=== PATIENT | female | born 1945 | race Caucasian/White ===

== ENCOUNTER → 2019-12-11 13:59 | Outpatient (CLI) | payer MEDICARE, SELFPAY ==
[2019-12-12 17:46] LABS: COVID19 Sendout Not Detected (Not Detect)
== END ==
PROVIDERS: PCP Specialist; Visit Provider Physician Assistant
DX: Z01.812 Encounter for preprocedural laboratory examination (principal)
CPT/HCPCS: 87635

== ENCOUNTER 2019-12-15 14:10 | Observation (INO) | payer MEDICARE, SELFPAY ==
[2019-12-07 09:00] VITALS: BMI 20.3
[2019-12-14] VITALS (19 sets, daily range): BP systolic 105–168; BP diastolic 60–94; PULSE 64–89; RESP 9–20; TEMP 35.8–36.7; O2SAT 2–100; BMI 20.3
--- NOTE | 2019-12-14 06:00 | DI.RAD.S_ITS ---
PROCEDURE: XR HIP W PEL IF DONE LT 2V INDICATIONS: left total hip TECHNIQUE: 2 views of the hip were acquired. COMPARISON: [facility] [place], [place]R PELVIS WITH BILATERAL LATERAL HIPS, 10/19/2019, 13:22. FINDINGS: Intraoperative images demonstrate left hip arthroplasty. There is good anatomic alignment and hardware appears intact. IMPRESSION: Intraoperative left hip arthroplasty. Dictated by: Stefany Martinez M.D. on 12/14/2019 at 16:49 Approved by: Stefany Martinez M.D. on 12/14/2019 at 16:50
[2019-12-14] MEDS: LACTATED RINGERS 1,000 ML 42 ML IV ×2 (09:05→12:03)
[2019-12-14] MEDS: PREGABALIN 75 MG CAPSULE PO (09:08)
[2019-12-14] MEDS: ACETAMINOPHEN 325 MG TABLET 975 MG PO (09:08)
[2019-12-14] MEDS: MELOXICAM 7.5 MG TABLET 15 MG PO (09:08)
[2019-12-14] MEDS: VANCOMYCIN 1,000 MG/200 ML PIGGYBACK 200 MG IV ×2 (09:29→17:40)
--- NOTE | 2019-12-14 09:58 | PM.PREOP ---
Pre-operative Note Interval Note History & Physical reviewed/Exam performed by Physician: Yes Changes to H&P: No
--- NOTE | 2019-12-14 09:58 | PM.OP.1 ---
Operative Date/Time/Diagnoses Date of procedure: 12/14/19 Time of procedure: 10:31 Pre-op diagnosis: Severe left hip OA Post-op diagnosis: same Procedure & Clinicians Procedure: Left total hip arthroplasty anterior approach Same procedure as scheduled: Yes Indications: The patient has had progressively worsening left hip pain with radiographic changes consistent with arthritis. Non-operative management has failed and the patient has requested total hip replacement. The risks, benefits and alternatives to surgery were discussed with the patient prior to proceeding. Risks discussed included, but were not limited to, failure to relieve pain, leg length discrepancy, dislocation, stiffness, infection, nerve damage, deep venous thrombosis, pulmonary embolism, stroke, coma, heart attack, permanent paralysis and , as well as the potential need for eventual revision of the prosthetic. Surgeon: Dafne Boggs Compensation And Benefits Advisor: Darby Anthony Anesthesia Type: General and Spinal Operative Notes Findings: Severe left hip osteoarthritis, soft bone, adequate stability Closure Type: primary Specimen(s): none sent Prosthetic devices, grafts, tissues, transplants, or devices: Boggs and Nephew 54 mm R3 cup, 54 neutral liner by 36, size 6 standard offset stem, minus 3 x 36 head Estimated Blood Loss (mL): 250 Blood products transfused: none Procedure in detail: The patient was brought to the operating room. Patient was carefully positioned in the supine position. Time-out was performed and antibiotics were given. Anesthesia was induced. She was positioned in the on the table in order to allow hyperextension of the hip. The left lower extremity was prepped and draped in a standard sterile fashion. An anterior left hip incision was made 1 fingerbreadth lateral to the anterior superior iliac spine and extended distally towards the greater trochanter. Dissection was carried out through skin and subcutaneous tissues. The skin and subcutaneous tissues were carefully injected with Marcaine. Superficial hemostasis was achieved. The fascia over the tensor fascia ankit was defined and incised with a knife. Two Allis clamps were used to grasp the fascia. Tensor fascia ankit was retracted laterally. A gelpi retractor was placed. Dissection was carried out down along the neck. The circumflex vessels were carefully identified and cauterized with the Aqua Mantis. There was good visualization of the femoral neck. A Cobra was placed superior to the neck and the gluteus fibers were carefully stripped from that superior aspect of the capsule. A 2nd retractor was placed along the inferior aspect of the neck. The rectus insertion along the capsule was partially released. A 3rd retractor that was then gently placed over the rim of the acetabulum under the rectus. Capsule was carefully incised and released from the intertrochanteric line circumferentially superior to the mid sagittal line and inferiorly to the mid sagittal line until the lesser trochanter was palpable. A tag stitch was placed both in the superior and inferior limb of the capsular insertion. Along the acetabulum capsule was also released up to the mid sagittal 12:00 position. A portion of the labrum was resected. A saw was used to perform an osteotomy at the level of the intertrochanteric line and the junction of the superior femoral neck leaving approximately 1 finger breath of residual inferior neck above the lesser trochanter. A 2nd cut was made along the femoral neck at the base of the head and a napkin ring of neck was removed. Corkscrew was placed in the femoral head and the head was removed without difficulty. Retractors were then repositioned around the acetabulum. Residual labrum was resected and additional osteophytes were removed. A reamer that was 4 mm below the templated size was placed by hand in the acetabulum and it was reamed to centralize the acetabulum. It was then reamed up to 2 under the templated size and fluoroscopy was brought in to confirm the position of the reaming and depth of reaming. I reamed 1 under the anticipated size. A trial cup was placed and noted that it was appropriately sized and fluoroscopy confirmed position and depth. The component was open and inserted without difficulty fluoroscopic imaging was used to confirm that the cup had been adequately seated and was well positioned. Neutral poly liner was placed. The cup was tested and noted to be stable. Attention was then directed to the femur. The femur was gently hyperextended additional capsular release was performed as needed in order to allow adequate visualization of the proximal femur with elevation of the femur. Patient was placed in a hyperextended slightly adducted position with maximum external rotation. Box osteotome was used to check for any residual neck as well as sclerotic bone along the trochanter. [place] pepper was placed in the femur. Additional broaching was performed. Canal finder was used to determine the alignment of the canal and position. Size 1 broach was placed. The canal was then appropriately broached up to the templated size as long as there was adequate stability of the broach and serial advancement of the broach without excessive impingement. Specific attention was directed at avoiding varus attempting to direct the distal aspect of the broach more anteriorly and avoiding excessive anteversion. Trial reduction showed acceptable range of motion, good stability, no posterior impingement, christian of leg length and appropriate lateral shuck. I also hyperflexed the hip and checked that there was no impingement anteriorly and there was good stability with flexion, adduction and internal rotation. Marcaine and Exparel were injected. The stem was placed without difficulty. Repeat trial reduction and x-ray showed acceptable overall position, length, and no evidence of the femoral fracture. Final head was placed. Wound was meticulously irrigated with normal saline. The hip was reduced and additional Exparel and Marcaine were injected. The capsule was closed with interrupted nonabsorbable sutures. The fascia of the tensor was closed with interrupted and running Vicryl. No drain was placed. Any tensor fascia ankit muscle that appeared to be contused or injured which was a minimal amount was carefully resected. Capsule around the tensor was injected with Exparel and Marcaine. The skin was closed with barbed stitches for the subcutaneous tissue and skin. We also used surgical glue. The wound was dressed sterilely. Brief Betadine soak was also used and was meticulously irrigated with normal saline. Patient was transferred to recovery room in satisfactory condition. Complications: none Post-operative Condition: stable Disposition: Acute Care Plan for aftercare: The patient will be maintained on a standard total hip replacement protocol with weight bearing as tolerated and anterior hip precautions. The patient will receive Aspirin and sequential compression devices for DVT prophylaxis. The patient will be discharged home when safe for the home environment.
[2019-12-14] MEDS: CEFAZOLIN 2 GM/100 ML FROZ.PIGGY IV ×2 (10:39→18:55)
[2019-12-14] MEDS: TRANEXAMIC ACID 1,000 MG VIAL 1000 MG INJ ×2 (11:15→13:17)
--- NOTE | 2019-12-14 11:24 | SUR.OPER ---
Supine on padded [place] table with bilateral legs secured in padded positioning boots and suspended in positioning spars, operative leg in traction per surgeon. Head on one pillow. Arm on non-operative side secured on padded armboard <90 degrees abduction. Arm on operative side padded and resting across chest then secured with tape over sheet. Padded perineal post in place per surgeon.
[2019-12-14] MEDS: BUPIVACAINE 0.25% W/ EPI 30 ML VIAL 60 ML INJ (11:30)
[2019-12-14] MEDS: SODIUM CHLORIDE IRRIG SOLUTION 250 ML, POVIDONE-IODINE SPONGE STICKS 1 APPLIC IRR (11:31)
[2019-12-14] MEDS: BUPIVACAINE LIPOSOME 266 MG/20 ML VIAL INJ (11:31)
--- NOTE | 2019-12-14 14:17 | DI.RAD.S_ITS ---
PROCEDURE: XR HIP W PEL IF DONE LT 2V INDICATIONS: POST OPERATIVE TOTAL LEFT HIP TECHNIQUE: AP pelvis and lateral view of the left hip acquired. COMPARISON: [facility] [place], XR HIP W PEL IF DONE LT 2V, 12/14/2019, 12:15. FINDINGS: Bones: Patient is status post left hip arthroplasty, with hardware components in expected positions. The hip joint appears congruent. The visualized bony structures appear intact. Moderate right hip osteoarthritic degenerative changes. Coarse calcifications over the mid pelvis likely related to uterine fibroids. Soft tissues: Overlying postoperative changes are noted. No suspicious soft tissue densities. IMPRESSION: Expected postsurgical change for left hip arthroplasty. Dictated by: Ananya Daniels MD, PhD on 12/14/2019 at 14:41 Approved by: Ananya Daniels MD, PhD on 12/14/2019 at 14:42
[2019-12-14] MEDS: ONDANSETRON 4 MG/2 ML INJ IV ×2 (16:30→20:22)
[2019-12-14] MEDS: ACETAMINOPHEN 325 MG TABLET 650 MG PO (17:39)
[2019-12-14] MEDS: IBUPROFEN 400 MG TABLET PO (17:39)
[2019-12-14] MEDS: LACTATED RINGERS 1,000 ML 125 ML IV (17:40)
--- NOTE | 2019-12-14 23:45 | PC.NURSE ---
Evening Shift/Admit Note- Patient arrived to room via bed from PACU at 1515. Patient alert and oriented and drowsy. No complaints of pain or discomfort. Patient complained of nausea. PRN IV Zofran given twice this evening with no resolve noted. Admission questions done, medications reviewed, physical assessment completed, and skin check done. Oriented patient to bed and bed controls, room, bathroom, lights, phone, menu, and call garza/tv remote. Safety measures in place. bed alarm activated. Call garza and phone within reach. will continue to monitor.
[2019-12-15] VITALS (7 sets, daily range): BP systolic 107–136; BP diastolic 49–70; PULSE 86–91; RESP 15–18; TEMP 36.6–37.1; O2SAT 96–97
[2019-12-15] MEDS: CEFAZOLIN 2 GM/100 ML FROZ.PIGGY IV (02:10)
[2019-12-15] MEDS: LACTATED RINGERS 1,000 ML 125 ML IV (03:36)
[2019-12-15 06:22] LABS: Hematocrit 28.5 % (36-46); Hemoglobin 9.7 g/dL (12.0-16.0)
--- NOTE | 2019-12-15 08:03 | PM.PN.1 ---
Subjective Subjective Date Patient Seen: 12/15/19 Time Patient Seen: 08:03 Interval history: She has severe left hip osteoarthritis. She was taken to the operating room and underwent a left total hip arthroplasty. She was mobilized out of bed with therapy and nursing and was noted to be doing well ambulating well. Her pain was well controlled with oral pain medications. Exam Vital Signs (past 8 hours): - 12/15/19 03:55 12/15/19 07:20 Temperature 97.8 F Pulse Rate 86 Respiratory Rate 18 Blood Pressure 114/49 L Pulse Oximetry 97 96 Oxygen Delivery Method Room Air Oxygen Flow Rate 0 Narrative Exam Narrative: She is alert she is eating breakfast Um she has minimal pain with gentle range of motion in her left hip. Her dressing is dry. She is able to do a straight leg raise and has no pain with gentle knee range of motion her calfs are soft bilaterally. Objective Labs Result Diagrams: 12/15/19 06:10 Labs: Laboratory Results - last 24 hr 12/15/19 06:10 Hgb 9.7 L Hct 28.5 L Assessment & Plan Assessment & Plan narrative: Doing well status post left total hip arthroplasty through an anterior approach the plan is to further mobilize with physical therapy today and then discharge her to home. She will do outpatient physical therapy and follow up as previously scheduled in 10 days or so. Quality VTE Deep Vein Thrombosis/Pulmonary Embolism Present on Admission: No
[2019-12-15] MEDS: SODIUM CHLORIDE 0.9% FLUSH 10 ML IV (08:35)
[2019-12-15] MEDS: ASPIRIN EC 81 MG TABLET PO ×2 (08:37→21:50)
[2019-12-15] MEDS: DOCUSATE 100 MG CAPSULE PO ×2 (08:41→21:50)
[2019-12-15] MEDS: ACETAMINOPHEN 325 MG TABLET 650 MG PO ×3 (08:41→21:49)
[2019-12-15] MEDS: LEVOTHYROXINE 75 MCG TABLET PO (08:42)
--- NOTE | 2019-12-15 10:02 | PC.NURSE ---
Addendum entered by Kiana Rodriguez R.N. 12/15/19 12:47: Just after AM PT session, pt had approx 150mls of emesis, settled after vomiting. Pt states pt's brother is coming for Caregiver PT session but is unable to stay overnight. Pt does not have any family or friends to stay overnight tonight. Pt's niece Janny will be able to come help pt afternoon into Friday. Original Note: Day Shift- Pt A&OX4, forgetful, needs information repeated, pt also repeats back information to this nurse to clarify. pt prefers new information in written form. Assured pt that her discharge paperwork will reflect what needs to be done at home. Encouraged pt to write down her home medications and new as needed medications when at home to track medication administration. Left anterior hip post op dressing covered with CDI aquacel dressing. Pt nauseated working with PT around 0940. Will monitor. Plan for PT session around 1400 per PT with pt's brother.
[2019-12-15] MEDS: LIOTHYRONINE 5 MCG TABLET PO (10:25)
[2019-12-15] MEDS: IBUPROFEN 400 MG TABLET PO ×2 (10:26→16:48)
[2019-12-15] MEDS: FOLIC ACID 0.4 MG TABLET PO (10:27)
--- NOTE | 2019-12-15 11:47 | PT.IIE ---
Current Diagnoses Unilateral primary osteoarthritis, left hip (12/14/19) Surgery Performed Operation Date: 12/14/19 10:45 Actual Procedures p Total Hip Arthroplasty/Anterior Approach(Left) - Dafne Boggs MD Surgical History (Last Updated 12/07/19 @ 09:29 by Janel Jenkins RN) History of cataract removal with insertion of prosthetic lens (07/17/11) Hx of rhinoplasty (Acute) Status post colonoscopy (04/29/07) Medical History (Last Updated 12/07/19 @ 09:40 by Janel Jenkins RN) Anxiety (Acute) Arthritis (Acute) Gluten intolerance (Acute) Hearing decreased (Acute) Herniated cervical disc (Acute) Hypothyroid (Acute) Osteoarthritis (Acute) RLS (restless legs syndrome) (Acute) Physical Therapy Inpatient Evaluation/Re-Eval M1 PT/OT-IP Prior Functional Status Start: 12/15/19 08:40 Freq: NEEDED Status: Active Protocol: Document 12/15/19 11:14 AW (Rec: 12/15/19 11:47 AW [email or web address]) Medical Review Prior Functional Status Medical History Reviewed Yes Communication Pt is an effective verbal communicator. She is verbose and appears forgetful at times , requiring multiple reminders . Mobility and Gait Pt uses a SPC at all times and could do her own grocery shopping with a combination of cane and shopping cart. She fell one week ago and hit her head which she reported to Dr. Boggs but she was not treated for any injury. Activities of Daily Living and IADL's Pt could dress herself with magnetic doctor and sock aid. She was independent with showering and toileting. 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 Social History Household Members none Living Arrangements House Number of Floors (Floors) One Floor Number of Stairs To Enter/Railing? 2 HEMAL with chain link fence on the left ascending. Home Environment High Toilet,Walk in Shower Home Equipment Front Wheel Walker,Straight Cane,Vascular Radiologist,Sock Aid,Lift Recliner,Grab Bars Near Toilet ,Grab Bars In Shower Additional Social History Comment Pt lives alone with her standard poodle. The dog is staying with a friend while the pt recuperates. She plans for her brother, Umberto, and her niece, Lashonda, to stay with her for a few days at discharge. She had planned for another family member to come after a few days, but that person is unable to travel due to COVID19 exposure. M2 PT-IP Current Condition Start: 12/15/19 08:40 Freq: NEEDED Status: Active Protocol: Document 12/15/19 11:14 AW (Rec: 12/15/19 11:47 AW [email or web address]) Physical Therapy Current Condition Current Condition Evaluation Date 12/15/19 Treatment Diagnosis L BARBRA with anterior approach; difficulty in walking Onset Date 12/14/19 Precautions Anterior Hip Precautions No Hip Extension,No Hip External Rotation Weight Bearing Status Weight Bearing Status Weight Bear as Tolerated M3 PT-IP Subjective Start: 12/15/19 08:40 Freq: NEEDED Status: Active Protocol: Document 12/15/19 11:14 AW (Rec: 12/15/19 11:47 AW [email or web address]) Subjective Physical Therapy Visit Type Type Initial Evaluation Visit Start Time 09:35 Visit Stop Time 10:09 Total Visit Minutes 34 Physical Therapy Visit Comments Patient Comments Pt is nauseated but willing to participate with PT Patient Goals Pt plans to return home at discharge with family assisting for a few days. Therapy Pain Assessment Pain When Pain Assessed At Rest Location Left Hip Intensity 3 Scale Used Numeric (0 - 10) Pain Management Techniques Apply Cold,Distraction,Re- positioning,Timing of Activity with Medications M4 PT-IP Mobility and Gait Start: 12/15/19 08:40 Freq: NEEDED Status: Active Protocol: Document 12/15/19 11:14 AW (Rec: 12/15/19 11:47 AW [email or web address]) PT-Bed Mobility Assessment Supine to Sit Supine to Sit Minimal Assistance,1 Person Assistance Scooting Scooting to Edge of Bed Standby Assistance PT-Transfer Assessment Sit to and From Stand Sit to and from Stand Minimal Assistance,1 Person Assistance,Use of Upper Extremities Equipment Transfer Assistive Device Gait Belt,Front Wheeled Walker Transfers Transfer Destination Chair Transfer Technique pt ambulated with FWW Transfer Ability Level of Assist Minimal Assistance,1 Person Assistance,Use of Upper Extremities Comments Mobility Comments Pt completed supine to sit with good attention to anterior hip precautions requiring min assist x 1 with therapist providing assist to pull up to sitting from the front. She was able to sit EOB with and without UE support in preparation for standing. She stood using FWW min A x 1 adn ambulated around the room with FWW CGA. She completed transfer to the chair min A x 1 with max cues for sequencing in order to avoid left hip extension. Pt felt sick once seated and vomited into an emesis bag. HAND HARDENER entered the room to provide assist. Pt was positioned reclined in the chair and left with HAND HARDENER attending. Gait Assessment Gait Gait Assistance Required: Contact Guard Assist Distance (Feet) 20 Able to Maintain Weight Bearing Status Yes During Gait Assistive Devices Assistive Device Gait Belt,Front Wheeled Walker Orthotic/Prosthetic Devices or Brace: No Gait Deviations General Gait Pattern Antalgic,Decreased Stride Length,Decreased Feet Clearance,Flexed Trunk,Step-to Gait Factors Limiting Gait Function Factors Limiting Gait Function Decreased Activity Tolerance, Decreased Sensation,Decreased Strength,Difficulty Following Directions,Limited Range of Motion,Pain,Poor Balance,Poor Safety Awareness Comments Gait Comments Pt required constant repetition of anterior hip precautions during gait due to anxiety and apparent forgetfulness. She moved well but needed reassurance at every turn. Stair Climbing Assessment Comments Stair Climbing Comments Not assessed due to pt nausea. She will need to clear stairs prior to discharge. PT-Balance Assessment Sitting Balance and Reactions Static Sitting Balance Ability Good Dynamic Sitting Balance Ability Good Standing Balance and Reactions Static Standing Balance Ability Good Dynamic Standing Balance Ability Fair Device Used FWW M5 PT-IP Objective Assessments Start: 12/15/19 08:40 Freq: NEEDED Status: Active Protocol: Document 12/15/19 11:14 AW (Rec: 12/15/19 11:47 AW [email or web address]) Orientation Orientation/Cognition Level of Alertness Confusional State Orientation Name,Month,Place,Situation Language Function Ability No Deficits Noted Safety Awareness Decreased Safety Awareness Memory Description Short Term Impaired Comments Pt oriented to all but day of week. She was forgetful and needed frequent cues regarding hip precautions. Gross Range of Motion Lower Extremity ROM Assessment Left Impaired Strength Lower Extremity Strength Assessment Bilaterally Impaired Comments Strength Comments RLE grossly 4/5 Coordination Assessment Gross Coordination Gross Coordination WNL Sensation Assessment Sensation Gross Sensation WNL Muscle Tone Muscle Tone WNL Yes Other Assessments Other Other Assessments BP supine 105/60 HR 89, sitting 123/65 HR 93, standing 135/64 HR 82. M6 PT-IP Treatment Start: 12/15/19 08:40 Freq: NEEDED Status: Active Protocol: Document 12/15/19 11:14 AW (Rec: 12/15/19 11:47 AW [email or web address]) Physical Therapy Treatment Exercises Exercises Ankle Pumps,Gluteal Sets Education Education Provided Precautions,Weight Bearing Status,Post-Op Packet,Safety Other Treatments Other Treatment Performed Provided education on role of PT, plan of care, weightbearing status, anterior hip precautions, and safe use of FWW. M7 PT-IP Assessment and Plan Start: 12/15/19 08:40 Freq: NEEDED Status: Active Protocol: Document 12/15/19 11:14 AW (Rec: 12/15/19 11:47 AW [email or web address]) PT Summary Assessment and Plan Potential Rehabilitation Potential Fair Status of Condition at Evaluation Evolving Summary Impairments Pain,ROM,Strength,Balance, Sensation,Cognition,Bed Mobility,Transfers,Gait, Activity Tolerance Assessment Summary Delaney is a 74 yo woman seen for PT evaluation on POD1 following L BARBRA with anterior approach. She lives alone and has been modified independent with use of SPC for short community distances. She reports two falls within the past month and admits she hit her head during the most recent fall a week ago. On evaluation, pt is requiring min assist of one with bed mobility and transfers, CGA for short bout ambulation with FWW. Pt had planned to have her brother and her niece - an RN - stay with her for a few days at discharge. Additional plans for caregiver assist were disrupted by COVID exposure. Pt is considering hiring caregiver assist for the days after her niece's availability. She was nauseous and vomiting with mobility this session and requiring frequent cues and reminders regarding anterior hip precautions due to apparent anxiety and forgetfulness. Caregiver training will need to be conducted prior to discharge. Pt will also need to clear stairs before she is able to safely return home. Goals Bed Mobility Goal Standby Assistance Transfer Goal Standby Assistance,Four Wheeled Walker Gait Goal Standby Assistance,Four Wheel Walker Gait Distance 150 Other Goals - up/down 2 steps with left- sided support (chain link fence at home) CGA Days to Meet Goals 5 Frequency of Treatment Frequency Of Treatment Twice a Day Treatment Plan Physical Therapy Treatment Plan Bed Mobility Training,Transfer Training,Gait Training, Therapeutic Exercise,Balance Retraining,Post Op Education, Discharge Planning,Hot or Cold Pack,Neuromuscular Re-ed Other Recommendations and Next Treatment bed mobility; gait training Focus with FWW; assess safety on stairs if able; set up caregiver training for PM or tomorrow AM. Umberto - . Lashonda [phone]. Recommendations To Nursing Amount of Assist Needed 1 Person Assist Discharge Recommendations PT Discharge Recommendations Home with Assistance,Home with 24/7 Assist,Outpatient PT Transportation Needs at Discharge Private Vehicle
--- NOTE | 2019-12-15 14:05 | CM.DANOTE ---
Addendum entered by Leda Boggs 12/15/19 14:20: Senior Resource guide provided to patient for private caregivers per patient request. [facility] Original Note: DCP/Assessment: Reviewed chart. Patient is a 74yr old male admitted to [facility] for left BARBRA performed on 12-14-[address] Boggs. PCP listed is [facility]. Primary payor is 1)[facility]. Met with patient explained CM/SW role. Patient sitting in recliner at time of visit. Patient reports that she has had nausea and vomiting all morning. Therapy attempted to work with her but delayed due to n/v. Therapy plans to reattempt visit around 2:00pm. Patient does have order to d/c home today. Unclear at this time whether patient will d/c or not. Patient reports that she has all needed DME at home. Current plan is for patient to do outpatient therapy as follow up. CFO CONTROLLER spoke with RN/Kiana, she plans to call provider after patient seen by therapy this afternoon. If patient continues with n/v and minimal mobility, d/c might be cancelled. Patient reports that she plans to d/c home when stable. Patient has family that can assist but duration of support undetermined. Patient reports that she had plans with family but it fell through due to pandemic. P: Anticipate home when stable. CM team to follow closely for needs. JESS Wagner Discharge Planning/Care Management Advanced directive, confirm from FAMILY Start: 12/14/19 18:50 Freq: Q24H Status: Active Protocol: Document 12/14/19 18:50 AGW (Rec: 12/14/19 22:56 AGW [id number]) Advance Directive, confirm on record Time 16:30 Person contacted patient Copy received No CM Discharge Assessment Start: 12/15/19 14:00 Freq: Status: Active Protocol: Document 12/15/19 14:00 KJS (Rec: 12/15/19 14:05 KJ [id number]) Discharge Planning Assessment Assigned Embedded Processor JESS Wagner Contact Information Umberto Mccarthyanamaria #([phone] ) Advance Directives? Yes History Provided By Patient,Medical Record Prior Living Arrangements House Household Members none Type of transporation used prior to Drives own vehicle admit Independent with ADL's Yes Is patient alert and oriented? Yes Caregiver for Another No Patient/Family Preference OP PT Therapy Discharge Plan Home Transportation Arrangement Family to provide transport. Whiteboard Updated in Patient Room with Yes name and ext. # of Embedded Processor Review Status In Process Next Review Type Continued Stay Review Pre-Anesthesia Assessment Start: 12/07/19 09:00 Freq: Status: Complete Protocol: Document 12/07/19 09:00 [facility] (Rec: 12/07/19 09:49 CAB [id number]) Pre-Anesthesia Assessment PAC Comment Pt w/high anxiety, r/t family stressors (son age 23), recently had to let family take care of dog for surgery Patient Information Reviewed Via Phone Assessment Assessment Completed With Patient Diagnostic Results BMP/CMP,Urinalysis,Other Comment Outside BMP/EKG, COVID screen @ 12/11/19 Seen Specialist in Last 12 Months Yes Specialist Seen Opthamologist/Operations Research Analyst, Orthopedist Primary Language Tajik Track Grinder Operator Required No Height 172.72 cm Weight 60.781 kg Body Mass Index (BMI) 20.3 Hearing Ability Hard of Hearing Visual Assist Magnifying Glass Dentition Type Teeth, Natural Present,Teeth, Missing Barriers to Learning Emotional Comment High anxiety Hx Anesthesia Reactions No Hx Family Anesthesia Reaction No Hx Malignant Hyperthermia No Hx Blood Transfusions No Anesthesia Review Requested No Medical Coder Yes: Niece will stay only 2 days [id number] assistance Additional comment High anxiety, had to place dog w/family members for surgery, very tearful alcohol intake former Smoking Status Never smoker Substance Use Type does not use Pain Present Pain Reported Musculoskeletal Symptoms Abnormal Gait,Difficulty Walking,Joint Pain,Limited Range of Motion,Neck Pain History of Falling (Recent or History of Yes ) Patient is completely paralyzed or No completely immobile Prosthesis or Orthotic Device Cane Mental Status Oriented to own ability Comment Balance issues, recent fall Is patient on oxygen? No Does patient have JIMÉNEZ/SOB No Hx Sleep Apnea No Currently Taking a Beta Letitia No Can You Climb a Flight of Stairs Without Yes SOB Hx Chest Pain No Hx SOB No Hx Syncope or Dizziness No Anti-Coagulant Therapy No Has a Gold Beater No Cardiac Testing No Hx Pacemaker/ICD No Pacemaker Rep Required? No Cardiac Clearance Received Not Applicable Diet Type At Home Regular,Gluten Free dysphagia No Gastrointestinal Symptoms Constipation,Diarrhea Bladder Pattern Urgency Urinary Catheter Present No Hx Urinary Self Catheterization No Diabetes No Patient No Lactating No Hx Drug Resistant Organism No Presence of External or Internal Medical Yes: Bilateral eye lens Devices Have you had any close contact with No someone diagnosed with COVID-19? Evaluation/Screening for possible COVID- Yes 19 infection completed? Marital Status / Lives With none Prior Living Arrangements House Support System Family Does the Patient Have Assistance After Yes: Niece will stay only 2 Surgery days post-op Patient Discharge Plan Description Return Home Comment Pt not advised on length of stay per surgeon Feels Safe in Current Environment Yes Been Physically Hurt or Threatened By a No Person in Current Environment Do you have thoughts of harming yourself None or others? Are you currently considering suicide? No Do you have a plan to hurt yourself or No Plan others? Do You Have Any Spiritual Beliefs That No May Affect Your HC Choices? Do You Have Any Cultural Practices That No May Affect Your HC Choices? Comment Faith Who Can We Speak to About Patient's Care Family, friends Identifying Code for Release of Patient Tung Information Health Care Proxy/Next of Kin Umberto (brother) Health Care Proxy Emergency Contact Name Umberto (brother) Emergency Contact Advance Directives? Yes: Working on Power of Heavy Truck Driver Yes Power of Heavy Truck Driver Name Heavy Truck Driver, pt unsure name at present PAC Instructions Do not shave/clip surgical site,Durable medical equipment ,Medications to take/avoid, Nasal antibiotic,No ETOH/ petroleum product on skin DOS, NPO,Pre-surgical wash,Sturdy shoes/comfortable clothes,Do not bring valuables and remove jewelry
--- NOTE | 2019-12-15 14:56 | PT.IPTN ---
Current Diagnoses Unilateral primary osteoarthritis, left hip (12/15/19) Surgery Performed Operation Date: 12/14/19 10:45 Actual Procedures p Total Hip Arthroplasty/Anterior Approach(Left) - Dafne Boggs MD Physical Therapy Treatment Note M2 PT-IP Current Condition Start: 12/15/19 08:40 Freq: NEEDED Status: Active Protocol: Document 12/15/19 11:14 AW (Rec: 12/15/19 11:47 AW [id number]) Physical Therapy Current Condition Current Condition Evaluation Date 12/15/19 Treatment Diagnosis L BARBRA with anterior approach; difficulty in walking Onset Date 12/14/19 Precautions Anterior Hip Precautions No Hip Extension,No Hip External Rotation Weight Bearing Status Weight Bearing Status Weight Bear as Tolerated M3 PT-IP Subjective Start: 12/15/19 08:40 Freq: NEEDED Status: Active Protocol: Document 12/15/19 14:35 AW (Rec: 12/15/19 14:56 AW [id number]) Subjective Physical Therapy Visit Type Type Treatment Note Visit Start Time 14:05 Visit Stop Time 14:30 Total Visit Minutes 25 Physical Therapy Visit Comments Patient Comments Pt has been able to tolerate food and has been up in the chair since AM session. Therapy Pain Assessment Pain When Pain Assessed During Mobility Pain Present Pain Present Pain Reported Location Left Hip Scale Used not quantified Pain Behaviors Facial Grimacing,Guarding, Wincing Pain Management Techniques Apply Cold,Distraction,Re- positioning,Timing of Activity with Medications M4 PT-IP Mobility and Gait Start: 12/15/19 08:40 Freq: NEEDED Status: Active Protocol: Document 12/15/19 14:35 AW (Rec: 12/15/19 14:56 AW [id number]) PT-Bed Mobility Assessment Sit to Supine Sit to Supine Minimal Assistance,1 Person Assistance Scooting Scooting to Edge of Bed Standby Assistance PT-Transfer Assessment Sit to and From Stand Sit to and from Stand Minimal Assistance,1 Person Assistance,Use of Upper Extremities Equipment Transfer Assistive Device Gait Belt,Front Wheeled Walker Transfers Transfer Destination Bed Transfer Technique pt ambulated with FWW Transfer Ability Level of Assist Minimal Assistance,1 Person Assistance,Use of Upper Extremities Comments Mobility Comments Pt scooted forward in the chair SBA and required verbal cues and min assist x 1 for sit to stand. She ambulated in the hallway with FWW CGA 35 feet to the stairs. She was able to sequence one step up using left hand rail and right hand hold min A. Pt was hesitant to try another step and required min assist to descend. She ambulated back to the room where she transferred to the bed min A x 1 to elevate her legs. Pt was positioned with call light and all needs in reach, bed alarm on for safety. Gait Assessment Gait Gait Assistance Required: Contact Guard Assist Distance (Feet) 35 Able to Maintain Weight Bearing Status Yes During Gait Assistive Devices Assistive Device Gait Belt,Front Wheeled Walker Orthotic/Prosthetic Devices or Brace: No Gait Deviations General Gait Pattern Antalgic,Decreased Stride Length,Decreased Feet Clearance,Flexed Trunk,Step-to Gait Factors Limiting Gait Function Factors Limiting Gait Function Decreased Activity Tolerance, Decreased Sensation,Decreased Strength,Difficulty Following Directions,Limited Range of Motion,Pain,Poor Balance,Poor Safety Awareness Comments Gait Comments Pt was more confident with gait this session but continued to require CGA. She went 35 feet to the stairs and then 35 feet back to the bed. Stair Climbing Assessment Evaluation Level of Assist On Stairs Minimal Assistance,1 Person Assistance Devices Stair Climbing Assistive Devices Left Railing Technique/Endurance Stair Climbing Direction Ascend and Descend Stair Climbing Technique Step to Step Number of Steps Climbed 1 Stair Climbing Set # Repetitions (reps) 1 Comments Stair Climbing Comments Pt used left rail ascending and WELDING MACHINE OPERATOR THERMIT/min assist. M5 PT-IP Objective Assessments Start: 12/15/19 08:40 Freq: NEEDED Status: Active Protocol: Document 12/15/19 11:14 AW (Rec: 12/15/19 11:47 AW [id number]) Orientation Orientation/Cognition Level of Alertness Confusional State Orientation Name,Month,Place,Situation Language Function Ability No Deficits Noted Safety Awareness Decreased Safety Awareness Memory Description Short Term Impaired Comments Pt oriented to all but day of week. She was forgetful and needed frequent cues regarding hip precautions. Gross Range of Motion Lower Extremity ROM Assessment Left Impaired Strength Lower Extremity Strength Assessment Bilaterally Impaired Comments Strength Comments RLE grossly 4/5 Coordination Assessment Gross Coordination Gross Coordination WNL Sensation Assessment Sensation Gross Sensation WNL Muscle Tone Muscle Tone WNL Yes Other Assessments Other Other Assessments BP supine 105/60 HR 89, sitting 123/65 HR 93, standing 135/64 HR 82. M6 PT-IP Treatment Start: 12/15/19 08:40 Freq: NEEDED Status: Active Protocol: Document 12/15/19 14:35 AW (Rec: 12/15/19 14:56 AW [id number]) Physical Therapy Treatment Exercises Exercises Ankle Pumps,Gluteal Sets,Quad Sets,Heel Slides Education Education Provided Precautions,Weight Bearing Status,Safety Other Treatments Other Treatment Performed Continued to reinforce anterior hip precautions. Pt unable to recall the extension precaution. M7 PT-IP Assessment and Plan Start: 12/15/19 08:40 Freq: NEEDED Status: Active Protocol: Document 12/15/19 14:35 AW (Rec: 12/15/19 14:56 AW [id number]) PT Summary Assessment and Plan Potential Rehabilitation Potential Good Status of Condition at Evaluation Stable Summary Impairments Pain,ROM,Strength,Balance, Sensation,Cognition,Bed Mobility,Transfers,Gait, Activity Tolerance Progress Towards Goals Slow Progress - Other Assessment Summary Delaney is progressing toward mobility goals but continues to require reinforcement of anterior hip precautions. In addition, she is requiring min assist for bed mobilty and to stand. Pt would benefit from an additional PT session to progress safe mobility and to conduct caregiver training for stair management. Goals Bed Mobility Goal Standby Assistance Transfer Goal Standby Assistance,Four Wheeled Walker Gait Goal Standby Assistance,Four Wheel Walker Gait Distance 150 Other Goals - up/down 2 steps with left- sided support (chain link fence at home) CGA Days to Meet Goals 4 Frequency of Treatment Frequency Of Treatment Twice a Day Treatment Plan Physical Therapy Treatment Plan Bed Mobility Training,Transfer Training,Gait Training, Therapeutic Exercise,Balance Retraining,Post Op Education, Discharge Planning,Hot or Cold Pack,Neuromuscular Re-ed Other Recommendations and Next Treatment bed mobility; gait training Focus with FWW; assess safety on stairs if able; set up caregiver training for PM or tomorrow AM. Umberto - . [place] - [phone]. Recommendations To Nursing Amount of Assist Needed 1 Person Assist Discharge Recommendations PT Discharge Recommendations Home with Assistance,Home with / Assist,Outpatient PT Transportation Needs at Discharge Private Vehicle
[2019-12-16] MEDS: IBUPROFEN 400 MG TABLET PO ×3 (00:49→08:09)
[2019-12-16] MEDS: hydrOXYzine pamoate 25 MG CAPSULE PO ×2 (01:46→09:50)
[2019-12-16 04:00] VITALS: BP 141/72; PULSE 76; RESP 18; TEMP 36.6; O2SAT 97
--- NOTE | 2019-12-16 04:24 | PC.NURSE ---
Pt doesn't report really any pain in the hip; but says she's having pretty intense muscle spasms in her legs. Dr. Villasenor called and Vistaril ordered and given. She also complains of a lot of stiffness in her calf/ankle bilaterally. States it was stiff before sx but even more so now. Encouraging ankle waves and stretches.
[2019-12-16 08:00] VITALS: BP 158/92; PULSE 98; RESP 17; TEMP 37.3; O2SAT 95
[2019-12-16] MEDS: ASPIRIN EC 81 MG TABLET PO (08:09)
[2019-12-16] MEDS: DOCUSATE 100 MG CAPSULE PO (08:09)
[2019-12-16] MEDS: FOLIC ACID 0.4 MG TABLET PO (08:09)
[2019-12-16] MEDS: LIOTHYRONINE 5 MCG TABLET PO (08:09)
[2019-12-16] MEDS: ACETAMINOPHEN 325 MG TABLET 650 MG PO (08:09)
[2019-12-16] MEDS: SODIUM CHLORIDE 0.9% FLUSH 10 ML IV (08:10)
[2019-12-16] MEDS: LEVOTHYROXINE 75 MCG TABLET PO (08:10)
--- NOTE | 2019-12-16 10:49 | PT.IPTN ---
Current Diagnoses Unilateral primary osteoarthritis, left hip (12/15/19) Surgery Performed Operation Date: 12/14/19 10:45 Actual Procedures p Total Hip Arthroplasty/Anterior Approach(Left) - Dafne Boggs MD Physical Therapy Treatment Note M2 PT-IP Current Condition Start: 12/15/19 08:40 Freq: NEEDED Status: Active Protocol: Document 12/15/19 11:14 AW (Rec: 12/15/19 11:47 AW [id number]) Physical Therapy Current Condition Current Condition Evaluation Date 12/15/19 Treatment Diagnosis L BARBRA with anterior approach; difficulty in walking Onset Date 12/14/19 Precautions Anterior Hip Precautions No Hip Extension,No Hip External Rotation Weight Bearing Status Weight Bearing Status Weight Bear as Tolerated M3 PT-IP Subjective Start: 12/15/19 08:40 Freq: NEEDED Status: Active Protocol: Document 12/16/19 10:38 AW (Rec: 12/16/19 10:48 AW [id number]) Subjective Physical Therapy Visit Type Type Treatment Note Visit Start Time 10:00 Visit Stop Time 10:15 Total Visit Minutes 15 Number of CHEMICAL PROCESS ANALYST Visits 0 Physical Therapy Visit Comments Patient Comments Pt is better rested and feeling more confident today. Therapy Pain Assessment Pain When Pain Assessed During Mobility Pain Present Pain Present Denied Pain M4 PT-IP Mobility and Gait Start: 12/15/19 08:40 Freq: NEEDED Status: Active Protocol: Document 12/16/19 10:38 AW (Rec: 12/16/19 10:48 AW [id number]) PT-Bed Mobility Assessment Supine to Sit Supine to Sit Standby Assistance Sit to Supine Sit to Supine Contact Guard Assistance,1 Person Assistance Scooting Scooting to Edge of Bed Standby Assistance PT-Transfer Assessment Sit to and From Stand Sit to and from Stand Contact Guard Assistance,1 Person Assistance,Use of Upper Extremities Equipment Transfer Assistive Device Gait Belt,Front Wheeled Walker Transfers Transfer Destination Bed,Chair Transfer Technique pt ambulated with FWW Transfer Ability Level of Assist Contact Guard Assistance,1 Person Assistance,Use of Upper Extremities Comments Mobility Comments Pt was on the commode with the GIZZARD PEELER. PT took over and assisted the pt to transfer to sitting EOB with FWW CGA. Pt' s brother entered the room and participated in caregiver training. He was instructed to apply the gait belt and was able to return demonstrate. He provided appropriate assist for pt to get in and out of the bed. Pt stood again using FWW SBA and ambulated 40 feet in the halls to the stairs. She and her brother participated in stair training and then ambulated back to the room where the pt transerred to the chair SBA. Pt was positioned there with all needs in reach. RN was notified that the pt is cleared by PT. Gait Assessment Gait Gait Assistance Required: Standby Assistance Distance (Feet) 40 Able to Maintain Weight Bearing Status Yes During Gait Assistive Devices Assistive Device Gait Belt,Front Wheeled Walker Orthotic/Prosthetic Devices or Brace: No Gait Deviations General Gait Pattern Antalgic,Decreased Stride Length,Decreased Feet Clearance,Flexed Trunk,Step-to Gait Factors Limiting Gait Function Factors Limiting Gait Function Decreased Activity Tolerance, Decreased Sensation,Decreased Strength,Difficulty Following Directions,Limited Range of Motion,Pain,Poor Balance,Poor Safety Awareness Comments Gait Comments Pt improved her independence with gait using FWW with her brother able to provide appropriate level of assist and cues. Pt walked 40' x 2 Stair Climbing Assessment Evaluation Level of Assist On Stairs Contact Guard Assistance,1 Person Assistance Devices Stair Climbing Assistive Devices Left Railing Technique/Endurance Stair Climbing Direction Ascend and Descend Stair Climbing Technique Step to Step Number of Steps Climbed 3 Stair Climbing Set # Repetitions (reps) 1 Comments Stair Climbing Comments Pt used left rail ascending and INTERN PRODUCT MARKETING MANAGER/CGA provided by her brother. PT-Balance Assessment Sitting Balance and Reactions Static Sitting Balance Ability Good Dynamic Sitting Balance Ability Good Standing Balance and Reactions Static Standing Balance Ability Good Dynamic Standing Balance Ability Good Device Used FWW M5 PT-IP Objective Assessments Start: 12/15/19 08:40 Freq: NEEDED Status: Active Protocol: Document 12/15/19 11:14 AW (Rec: 12/15/19 11:47 AW [id number]) Orientation Orientation/Cognition Level of Alertness Confusional State Orientation Name,Month,Place,Situation Language Function Ability No Deficits Noted Safety Awareness Decreased Safety Awareness Memory Description Short Term Impaired Comments Pt oriented to all but day of week. She was forgetful and needed frequent cues regarding hip precautions. Gross Range of Motion Lower Extremity ROM Assessment Left Impaired Strength Lower Extremity Strength Assessment Bilaterally Impaired Comments Strength Comments RLE grossly 4/5 Coordination Assessment Gross Coordination Gross Coordination WNL Sensation Assessment Sensation Gross Sensation WNL Muscle Tone Muscle Tone WNL Yes Other Assessments Other Other Assessments BP supine 105/60 HR 89, sitting 123/65 HR 93, standing 135/64 HR 82. M6 PT-IP Treatment Start: 12/15/19 08:40 Freq: NEEDED Status: Active Protocol: Document 12/16/19 10:38 AW (Rec: 12/16/19 10:48 AW [id number]) Physical Therapy Treatment Education Education Provided Precautions,Weight Bearing Status,Safety Other Treatments Other Treatment Performed Pt able to explain hip precautions to her brother today with minimal verbal cues from therapist. Both were reminded that the precautions are spelled out in detail in the pt's post op folder. M7 PT-IP Assessment and Plan Start: 12/15/19 08:40 Freq: NEEDED Status: Active Protocol: Document 12/16/19 10:38 AW (Rec: 12/16/19 10:48 AW [id number]) PT Summary Assessment and Plan Potential Rehabilitation Potential Good Status of Condition at Evaluation Stable Summary Impairments Pain,ROM,Strength,Balance, Sensation,Cognition,Bed Mobility,Transfers,Gait, Activity Tolerance Progress Towards Goals Progressing Toward Goals Assessment Summary Delaney's brother was present for caregiver training. He was able to don the gait belt, provide assist with bed mobility, transfers, gait, and stairs. Pt is safe for discharge to home with family assist and outpatient PT. Goals Bed Mobility Goal Standby Assistance Transfer Goal Standby Assistance,Four Wheeled Walker Gait Goal Standby Assistance,Four Wheel Walker Gait Distance 150 Other Goals - up/down 2 steps with left- sided support (chain link fence at home) CGA Days to Meet Goals 2 Frequency of Treatment Frequency Of Treatment Discharge Treatment Plan Physical Therapy Treatment Plan Bed Mobility Training,Transfer Training,Gait Training, Therapeutic Exercise,Balance Retraining,Post Op Education, Discharge Planning,Hot or Cold Pack,Neuromuscular Re-ed Recommendations To Nursing Amount of Assist Needed Standby Assistance Discharge Recommendations PT Discharge Recommendations Home with Assistance, Outpatient PT Transportation Needs at Discharge Private Vehicle
--- NOTE | 2019-12-16 10:59 | PM.DS.1 ---
History of Present Illness History of Present Illness Date Patient Seen: 12/16/19 Time Patient Seen: 10:59 Chief complaint: Left Total Hip Arthplasty/Anterior Approach Narrative: The patient has had progressively worsening left hip pain with radiographic changes consistent with arthritis. Non-operative management has failed and the patient has requested total hip replacement. The risks, benefits and alternatives to surgery were discussed with the patient prior to proceeding. Risks discussed included, but were not limited to, failure to relieve pain, leg length discrepancy, dislocation, stiffness, infection, nerve damage, deep venous thrombosis, pulmonary embolism, stroke, coma, heart attack, permanent paralysis and , as well as the potential need for eventual revision of the prosthetic. Discharge Providers Provider Date of admission: 12/15/19 14:10 Discharge Date: 12/16/19 Primary care physician: Gamal Mg Consults: 12/14/19 06:00 Consult to Anesthesiology Routine Comment: Consulting Provider: Anesthesiologist Reason for consultation: Regional block for post operative pain control 12/14/19 17:17 Consult to Discharge Planning Routine Comment: Consult to Physical Therapy Evaluate & Treat Comment: Physician Instructions: post op BARBRA protocol Consult to Respiratory Therapy Evaluate & Treat Comment: Physician Instructions: Evaluate and treat Discharge provider: Camilla Blank PA-C Summary Hospital Course Discharge Diagnosis: s/p total hip arthroplasty Hospital Course: Patient was admitted for total hip arthroplasty with Dr. Boggs. Patient was slow to mobilize yesterday and did not discharge home. She was stable POD #2 and ready for DC home. Exam Vital Signs (past 8 hours): - 12/16/19 04:00 12/16/19 08:00 Temperature 97.8 F 99.1 F Pulse Rate 76 98 H Respiratory Rate 18 17 Blood Pressure 141/72 H 158/92 H Pulse Oximetry 97 95 Oxygen Delivery Method Room Air Oxygen Flow Rate 0 Narrative Exam Narrative: Patient sitting in bedside chair in NAD. She is alert and oriented X3. Calves are soft, compressible, and nontender bilaterally. She's able to to actively dorsiflex and plantarflex. Sensation intact to light touch throughout BLEs. Pulses are symmetrical. No compaints ready for DC home. Objective Labs Result Diagrams: 12/15/19 06:10 Discharge Plan Discharge Plan Patient Disposition: Home Discharge comment: Discharge to home after seen by therapy Discharge orders & Medications Prescriptions: New aspirin 81 mg Tablet,Delayed Release (Dr/Ec) 81 mg PO BID Qty: 60 RF: 0 tramadol 50 mg Tablet 50 mg PO QID PRN (Reason: Pain, Moderate (4-6)) Qty: 10 RF: 0 Continued liothyronine 5 mcg Tablet 5 mcg PO DAILY Qty: 0 RF: 0 levothyroxine [Levoxyl] 75 MCG tablet 75 mcg PO DAILY Qty: 0 RF: 0 Restasis 1 EACH dropperette 1 drp EYE-BOTH BID Qty: 0 RF: 0 folic acid 800 mcg Tablet 480 mcg PO DAILY RF: 0 magnesium glycinate 100 mg Tablet 400 mg PO BEDTIME RF: 0 progesterone micronized 4 % Gel 3 % VAGINAL DAILY RF: 0 Follow up/Referrals: Dafne Boggs MD [Physician] - (PLEASE CALL DR BOGGS'S OFFICE TO CONFIRM/SCHEDULE YOUR FOLLOW UP APPOINTMENT.) Gamal Mg [Primary Care Provider] - Diet/Activity/Treatments Diet: Diet as Tolerated Activity: Ambulate multiple times a day. Elevate left leg as needed. Cold/Heat Therapy: Apply ice to left hip multiple times a day. Skin/Wound/Dressing Care Report to your healthcare provider any signs of infection, such as:: chills, fever, night sweats, increased pain, unusual drainage and unusual redness Dressing: Keep dressing on. Okay to shower Visit Report/Discharge Packet Instructions: DI for Hip Replacement, How to Prevent Falls, DI for Postoperative Pain Visit Report Forms: Stroke Signs & Symptoms Discharge Data Primary Care Provider: Gamal Mg Attending Provider: Dafne Boggs Admit Date/Time: 12/15/19 14:10 Quality VTE Deep Vein Thrombosis/Pulmonary Embolism Present on Admission: No
--- NOTE | 2019-12-16 11:11 | PC.NURSE ---
Pt is dressed and ready for discharge home with Brother Christ. Went over d/c instructions with Pt and Brother- discussed d/c meds, time of last dose, reviewed stroke education, discharge medications, time of last dose, signs/symptoms of infection, drinking plenty of fluids to prevent constipation or dehydration, no driving while taking narcotics, following anterior hip precautions, and follow up. Pt denies further questions and was taken out via w/c by [employer] to pov with Brother and all belongings.
--- NOTE | 2019-12-16 16:08 | CM.DPNOTE ---
TC from Aleida at [facility]. family have now placed call to her requesting a bed at SNF stating patient needs rehab. Reviewed chart, DC order placed today by ortho team and patient cleared by PT for home w/assist and outpt PT. Notified Aleida that this [employer] unable to fax records but suggested that patient/family contact Ortho to discuss steps forward. Patient has [facility] so would require a pre authorization before a SNF stay. [facility]
== END 2019-12-16 11:15 | disposition home or self-care (01) ==
LOC: OR 14:22 → AC 14:23
PROVIDERS: Admitting Provider Orthopaedic Surgery; PCP Family Medicine; Referring Provider Orthopaedic Surgery; Visit Provider Orthopaedic Surgery
PROC: (CPT 27130; principal; 2019-12-14 10:45)
DX: M16.12 Unilateral primary osteoarthritis, left hip (principal); G25.81 Restless legs syndrome
CPT/HCPCS: 27130; 36415; 73502; 85014; 85018; 97110; 97116; 97161; C1776; G0378; C9290; J0690; J1100; J2274; J2405; J2704